=== PATIENT | male | born 2000 | race African-American/Black ===

== ENCOUNTER 2021-02-02 01:45 | Emergency (ER) | payer OTHER ==
[~2021-02-02] VITALS: Ht 172.7 cm; Wt 70.5 kg
[2021-02-02] MEDS ORDERED: HYDR-3363 PO (02:01)
[2021-02-02] MEDS ORDERED: ALBU83IN INH (02:01)
[2021-02-02] MEDS ORDERED: MUCI600T31 PO (02:01)
--- NOTE | 2021-02-02 07:11 | REPVR ---
PROCEDURE INFORMATION: Exam: XR Chest Exam date and time: 02/02/2021 6:47 AM Age: 20 years old Clinical indication: Cough TECHNIQUE: Imaging protocol: XR of the chest. Views: 2 views. COMPARISON: No relevant prior studies available. FINDINGS: Lungs: There is a vertical linear density in the lateral aspect of the left lung base with markings seen lateral to it. This is likely artifactual due to skin fold. Pleural spaces: No pleural effusion. Heart/Mediastinum: Unremarkable. No cardiomegaly. Bones/joints: Unremarkable. IMPRESSION: 1. No focal consolidation. 2. Vertical linear lucency in the lateral left lung base likely artifactual and unlikely to represent loculated pneumothorax however correlation with right lateral decubitus x-ray is suggested. Electronically signed by: Shaggy Padilla On 02/02/2021 07:11:32 AM
[2021-02-02] MEDS ORDERED: PRED20TA PO (07:23)
[2021-02-02] MEDS ORDERED: predniSONE 20 MG TAB PO ONE (07:25)
[2021-02-02 07:35] VITALS: BP 124/72
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
== END 2021-02-02 07:36 | disposition home or self-care (01) ==
LOC: M ED 01:45
DX: R05 Cough (principal); G43.909 Migraine, unspecified, not intractable, without status migrainosus; Z79.899 Other long term (current) drug therapy
CPT/HCPCS: 71046; 99283; J7512

== ENCOUNTER 2021-02-09 14:36 | Emergency (ER) | payer OTHER ==
[~2021-02-09] VITALS: Ht 172.7 cm; Wt 71.9 kg
[~2021-02-09 14:36] MED LIST: ALBU83IN INH; HYDR-3363 PO; MUCI600T31 PO; PRED20TA PO
[2021-02-09 14:42] VITALS: BP 136/103
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
[2021-02-09] MEDS ORDERED: LIDOCAINE 5% (LIDODERM) PATCH TD ONE (17:45)
[2021-02-09] MEDS ORDERED: diazePAM 10 MG TAB PO ONE (17:45)
[2021-02-09] MEDS ORDERED: KETOROLAC 60MG 2ML VIAL IM ONE (17:45)
[2021-02-09] MEDS ORDERED: METH-1165 PO (18:14)
[2021-02-09] MEDS ORDERED: IBUP-1022 PO (18:14)
[2021-02-09] MEDS ORDERED: ASPE4PAD TOP (18:14)
[2021-02-09] MEDS ORDERED: **NOTE PATIENT COMMENT** MISC XX SCH (21:00)
== END 2021-02-09 18:36 | disposition home or self-care (01) ==
LOC: M ED 14:36
DX: Z04.1 Encounter for examination and observation following transport accident (principal); M54.2 Cervicalgia; Z79.52 Long term (current) use of systemic steroids; Z79.899 Other long term (current) drug therapy
CPT/HCPCS: 72072; 72110; 72125; 96372; 99283; J1885